=== PATIENT | male | born 1975 | race Caucasian/White ===

== ENCOUNTER 2019-05-21 15:23 | Emergency (ER) | payer MEDICAID ==
[~2019-05-21] VITALS: Ht 167.6 cm; Wt 108.9 kg
--- NOTE | 2019-05-21 15:31 | NUR ---
PT AMBULATORY TO ER BED 15 C/O LLQ PAIN R/T GROIN AND L SIDED FLANK PAIN, SUDDEN ONSET X 2 HOURS AGO. DENIES DYSURIA, -N/V. PT STATES HX OF KIDNEY STONES. AWAITING MD LEDEZMA.
--- NOTE | 2019-05-21 15:49 | NUR ---
DR BAGLEY AT BEDSIDE FOR EVAL
[2019-05-21] MEDS ORDERED: KETOROLAC TROMETHAMINE INJ 30 MG/ML VIAL ONE (15:54)
[2019-05-21 15:56] LABS: BILIRUBIN,URINE Negative (NEGATIVE); BLOOD, URINE Large Ery/uL (NEGATIVE); COLOR,URINE Yellow (YELLOW); KETONES,URINE Trace (NEGATIVE); LEUKOCYTE ESTERASE ,URINE Negative (NEGATIVE); NITRITE, URINE Negative (NEGATIVE); PH,URINE 5.5 (5.0-8.0); PROTEIN,URINE Negative (NEGATIVE); UGLUCOSE 500 MG/DL mg/dL (NEGATIVE); UROBILINOGEN,URINE 0.2 EU/dL (0.2)
--- NOTE | 2019-05-21 15:56 | NUR ---
IV LINE STARTED BLOOD DRAWN AND SENT TO LAB.
[2019-05-21 15:58] LABS: APPEARANCE,URINE HAZY (CLEAR)
[2019-05-21] MEDS: IV NS 0.9% 1,000 ML BAG IV ONE (15:59)
[2019-05-21 16:00] LABS: BASOPHILS % (AUTO) 0.2 % (0.0-2.0); EOSINOPHILS % (AUTO) 3.5 % (0.0-6.0); HEMATOCRIT 41 % (39-51); HEMOGLOBIN 13.8 g/dL (13.5-17.5); LYMPHOCYTES # (AUTO) 1.8 /CMM (0.8-4.8); LYMPHOCYTES % (AUTO) 20.7 % (20.0-44.0); MEAN CORPUSCULAR HGB CONC 34 g/dl (31.0-36.0); MEAN CORPUSCULAR VOLUME 86 fL (80-96); MONOCYTES # (AUTO) 0.6 /CMM (0.1-1.30); MONOCYTES % (AUTO) 6.8 % (2.0-12.0); NEUTROPHILS # (AUTO) 5.9 /CMM (1.8-8.9); NEUTROPHILS % (AUTO) 68.8 % (43.0-81.0); PLATELET COUNT (AUTO) 206 /CMM (150-450); RED BLOOD CELL COUNT(AUTO) 4.79 MIL/uL (4.5-6.0); WHITE BLOOD COUNT (AUTO) 8.5 K/uL (4.3-11.0)
[2019-05-21] MEDS: KETOROLAC TROMETHAMINE INJ 30 MG/ML VIAL IV ONE (16:00)
[2019-05-21] MEDS: ONDANSETRON HCL/PF 4 MG/2 ML VIAL IVP ONE (16:00)
[2019-05-21 16:11] LABS: CALCIUM, SERUM 8.5 mg/dL (8.5-10.1); CREATININE 0.9 mg/dL (0.6-1.3); POTASSIUM 3.7 mmol/L (3.5-5.1)
[2019-05-21 16:13] LABS: ALBUMIN 3.3 g/dL (3.4-5.0); BILIRUBIN,DIRECT 0.1 mg/dL (0.0-0.2); BILIRUBIN,TOTAL 0.3 mg/dL (0.2-1.0); TOTAL PROTEIN, SERUM 6.6 g/dL (6.4-8.2)
[2019-05-21 16:13] LABS: BACTERIA,URINE Few /HPF (None Seen); CALCIUM OXALATE CRYSTALS,UR Few /HPF (None Seen); SQUAMOUS EPITHELIAL CELL,UR Few /HPF (None Seen); WBC,URINE 0-2 /HPF (0-3)
[2019-05-21 16:14] LABS: MUCUS,URINE Moderate /LPF (None Seen)
[2019-05-21 17:28] VITALS: BP 138/84
--- NOTE | 2019-05-21 17:28 | NUR ---
Patient discharged to home in stable condition. Written and verbal after care instructions given. Patient verbalizes understanding of instruction.IV removed. Catheter intact and site benign. Pressure and 4x4 applied to site. No bleeding noted.
== END 2019-05-21 17:29 | disposition home or self-care (01) ==
LOC: ER 15:27
DX: N23 Unspecified renal colic (principal); E11.65 Type 2 diabetes mellitus with hyperglycemia
CPT/HCPCS: 36415; 74176; 80048; 80076; 81001; 83690; 85025; 96361; 96374; 99284; J1885; J7030; 81000-TC

== ENCOUNTER 2024-04-05 20:37 | Emergency (ER) | payer MEDICAID, OTHER ==
[~2024-04-05] VITALS: Ht 170.2 cm; Wt 90.7 kg
[2024-04-05] MEDS ORDERED: ONDANSETRON HCL/PF 4 MG/2 ML VIAL ONE ×2 (22:30→22:40)
[2024-04-05] MEDS ORDERED: KETOROLAC TROMETHAMINE 15 MG/ML VIAL ONE (22:30)
[2024-04-05] MEDS: IV NS 0.9% 1,000 ML BAG IV ONE (22:37)
[2024-04-05] MEDS: ONDANSETRON HCL/PF 4 MG/2 ML VIAL IVP ONE (22:38)
[2024-04-05] MEDS: KETOROLAC TROMETHAMINE 15 MG/ML VIAL IV ONE (22:38)
[2024-04-05] MEDS: ONDANSETRON HCL/PF 4 MG/2 ML VIAL IV ONE (22:41)
[2024-04-05 22:42] LABS: BASOPHILS % (AUTO) 0.3 % (0.0-2.0); EOSINOPHILS # (AUTO) 0.1 K/uL (0.0-0.7); EOSINOPHILS % (AUTO) 0.9 % (0.0-6.0); HEMATOCRIT 45 % (39-51); HEMOGLOBIN 15.7 g/dL (13.5-17.5); LYMPHOCYTES # (AUTO) 0.9 K/uL (0.8-4.8); LYMPHOCYTES % (AUTO) 7.6 % (20.0-44.0); MEAN CORPUSCULAR HEMOGLOBIN 29 PG (26.0-33.0); MEAN CORPUSCULAR HGB CONC 35 g/dl (31.0-36.0); MEAN CORPUSCULAR VOLUME 83 fL (80-96); MONOCYTES # (AUTO) 0.7 K/uL (0.1-1.30); MONOCYTES % (AUTO) 6.3 % (2.0-12.0); NEUTROPHILS # (AUTO) 10.1 K/uL (1.8-8.9); NEUTROPHILS % (AUTO) 84.9 % (43.0-81.0); PLATELET COUNT (AUTO) 236 K/uL (150-450); RED BLOOD CELL COUNT(AUTO) 5.44 MIL/uL (4.5-6.0); RED CELL DISTRIBUTION WIDTH 14.1 % (11.5-15.0); WHITE BLOOD COUNT (AUTO) 11.9 K/uL (4.3-11.0)
[2024-04-05 22:49] LABS: CALCIUM, SERUM 8.3 mg/dL (8.5-10.1); CREATININE 0.7 mg/dL (0.6-1.3); POTASSIUM 3.7 mmol/L (3.5-5.1)
[2024-04-05 22:56] LABS: ALBUMIN 3.5 g/dL (3.4-5.0); BILIRUBIN,DIRECT 0.2 mg/dL (0.0-0.2); BILIRUBIN,TOTAL 0.5 mg/dL (0.2-1.0); TOTAL PROTEIN, SERUM 7.6 g/dL (6.4-8.2)
[2024-04-05] MEDS ORDERED: ONDA4TAB5 PO (23:23)
[2024-04-06 00:31] VITALS: BP 138/86; TEMP 98.9; O2SAT 98
== END 2024-04-06 00:31 | disposition home or self-care (01) ==
LOC: ER 20:39
DX: K52.9 Noninfective gastroenteritis and colitis, unspecified (principal); E11.9 Type 2 diabetes mellitus without complications; R11.2 Nausea with vomiting, unspecified; Z87.442 Personal history of urinary calculi
CPT/HCPCS: 99284; 96374; 96361; 96375; 85025; 80048; 83690; 80076; 36415; J2405 ×2; J7030; J1885

== ENCOUNTER 2024-06-28 00:05 | Emergency (ER) | payer OTHER ==
[~2024-06-28] VITALS: Ht 170.2 cm; Wt 90.7 kg
[~2024-06-28 00:05] MED LIST: ONDA4TAB5 PO
[2024-06-28 00:33] VITALS: BP 134/83; TEMP 98.7; O2SAT 96
[2024-06-28] MEDS ORDERED: ALBU18HF2 INH (01:46)
[2024-06-28] MEDS ORDERED: BENZ-13 PO (01:46)
[2024-06-28] MEDS ORDERED: BENZONATATE 100 MG CAPSULE PO ONE (01:55)
[2024-06-28] MEDS: BENZONATATE 100 MG CAPSULE PO PRN (01:56)
== END 2024-06-28 02:02 | disposition home or self-care (01) ==
LOC: ER 00:16
DX: R05.9 Cough, unspecified (principal); E11.9 Type 2 diabetes mellitus without complications; Z87.442 Personal history of urinary calculi
CPT/HCPCS: 71045-TC

== ENCOUNTER 2025-07-09 21:37 | Emergency (ER) | payer SELFPAY ==
[~2025-07-09] VITALS: Ht 167.6 cm; Wt 102.1 kg
[~2025-07-09 21:37] MED LIST changes: +ALBU18HF2 INH; +BENZ-13 PO
[2025-07-09 22:32] VITALS: BP 148/84; TEMP 98.1
[2025-07-09] MEDS ORDERED: BENZONATATE 100 MG CAPSULE PO ONE (22:41)
[2025-07-09] MEDS: BENZONATATE 100 MG CAPSULE PO PRN (22:43)
[2025-07-10 00:47] VITALS: O2SAT 98
== END 2025-07-10 00:47 | disposition home or self-care (01) ==
LOC: ER 21:39
DX: R05.9 Cough, unspecified (principal); E11.9 Type 2 diabetes mellitus without complications; Z87.442 Personal history of urinary calculi
CPT/HCPCS: 71045-TC